=== PATIENT | female | born 1945 | race Caucasian/White ===

== ENCOUNTER 2020-09-01 12:26 | Emergency (ER) | payer MEDICARE, BC ==
[~2020-09-01] VITALS: Ht 162.6 cm; Wt 55.0 kg
[2020-09-01 12:48] VITALS: BP 161/68; Ht 162.6 cm; Wt 55.0 kg
[2020-09-01 14:40] LABS: BASOPHILS 1.2 % (0-2); EOSINOPHILS 3.4 % (0-7); HEMATOCRIT 40.8 % (36.0-48.0); HEMOGLOBIN 13.5 g/dL (12-16); LYMPHOCYTES 33.2 % (15-50); MCH 31.4 pg (26.0-34.0); MCV 94.9 fL (80.0-100.0); MONOCYTES 10.9 % (2-11); NEUTROPHILS 51.3 % (40-80); PLATELET COUNT 217 10x3/uL (130-400); RDW 13.5 % (11.5-14.5); WBC 5.3 10x3/uL (4.8-10.8)
[2020-09-01 14:52] LABS: ANION GAP 11.8 mmol/L (8-16); CALCIUM 9.1 mg/dL (8.5-10.1); CARBON DIOXIDE 28.5 mmol/L (21.0-32.0); CREATININE - SERUM 0.9 mg/dL (0.6-1.3); POTASSIUM - SERUM 4.3 mmol/L (3.5-5.1)
[2020-09-01 14:58] LABS: ALBUMIN 3.8 g/dL (3.4-5.0); BILIRUBIN - TOTAL 0.43 mg/dL (0.2-1.3); PROTEIN - SERUM 6.9 g/dL (6.4-8.2)
[2020-09-01 15:21] LABS: APTT 30.1 SECONDS (22.8-39.4)
[2020-09-01 15:40] LABS: PROTIME 12.2 SECONDS (11.6-15.0)
== END 2020-09-01 15:20 | disposition home or self-care (01) ==
LOC: D.ER 12:26
PROVIDERS: Emergency Medicine
DX: R60.0 Localized edema (principal); M79.604 Pain in right leg; G62.9 Polyneuropathy, unspecified